=== PATIENT | female | born 1960 | race Caucasian/White ===

== ENCOUNTER 2018-01-29 07:08 | Emergency (ER) | payer BC ==
--- NOTE | 2018-01-29 07:23 | UC ---
Dental HPI - HPI Summary HPI Summary: This patient is a 57 year old F presenting to [facility] with a chief complaint of L molar pain since 01/26/18 in the afternoon. The CC is described as more in the L side and it started as tingling/numbing feeling like a nerve pain. The patient rates the pain 2/10 in severity. Symptoms aggravated by her cold. Symptoms alleviated by nothing. Patient reports sore throat (since 01/26/18 in the evening), lip swelling, L sided neck soreness, and L sided face pain with bumps. Patient denies fever, eye pain, ear pain, jaw pain, and numbness and weakness in the LE bilaterally. The patient denies hx of shingles. - History of Current Complaint Stated Complaint: DENTAL Hx Obtained From: Patient Onset/Duration: Sudden Onset, Lasting Days, Still Present Severity: Mild Pain Intensity: 2 Pain Scale Used: 0-10 Numeric Aggravating Factor(s): Other - her cold Alleviating Factor(s): Nothing - Allergies/Home Medications Allergies/Adverse Reactions: Allergies Allergy/AdvReac Type Severity Reaction Status Date / Time moxifloxacin Allergy Intermediate Hives Verified 01/29/18 07:32 Penicillins Allergy Intermediate Unknown Verified 01/29/18 07:32 Reaction Details Quinolones Allergy Rash Verified 01/29/18 07:32 Home Medications: Home Medications Atorvastatin* [Lipitor 20 MG*] 1 tab PO DAILY 01/29/18 [History Confirmed ] PMH/Surg Hx/FS Hx/Imm Hx Endocrine History: Other Other Endocrine History: denies DM Cardiovascular History: Other Other Cardiovascular History: denies HTN GI/ History: Gastroesophageal Reflux - Surgical History Surgical History: Yes Surgery Procedure, Year, and [place] [facility] [facility] breast mass,. 09/[place] [facility] lobectomy/isthmusectomy, 10/[place] [facility], CERVICAL ABLATION. T/A 1979. WISDOM TEETH 1980. 1994, [place] [facility] 11/17/15-GASTRIC SLEEVE - Family History Known Family History: Positive: Other Family History: denies FHx of breast CA - Social History Alcohol Use: None Substance Use Type: None Smoking Status (MU): Never Smoked Tobacco Have You Smoked in the Last Year: No - Immunization History Most Recent Influenza Vaccination: 2014 Most Recent Tetanus Shot: UP TO DATE Most Recent Pneumonia Vaccination: HAS NOT HAD Review of Systems Constitutional: Other - denies fever Eyes: Other - denies eye pain ENT: Dental Pain - L molar pain, Sore Throat, Other - lip swelling, L sided neck soreness, and L sided face pain with bumps; denies ear pain and jaw pain Musculoskeletal: Other: - denies numbness and weakness in the LE bilaterally All Other Systems Reviewed And Are Negative: Yes Physical Exam - Summary Physical Exam Summary: General: well-appearing, no pain distress Skin: warm, color reflects adequate perfusion, dry Head: normal Eyes: EOMI, ALEXIS ENT: Little swelling in L upper lip, small raised area on L cheek, clear rhinorrhea, No tenderness to palpation of the tragus on the L Neck: supple, nontender Respiratory: CTA, breath sounds present Cardiovascular: RRR Abdomen: soft, nontender Bowel: present Musculoskeletal: normal, strength/ROM intact Neurological: sensory/motor intact, A&O x3. No sensation deficit, no facial droop Psychological: affect/mood appropriate Triage Information Reviewed: Yes Vital Signs: Initial Vitals Temp Pulse Resp BP Pulse Ox 98.5 F 59 20 159/77 99 01/29/18 07:25 01/29/18 07:25 01/29/18 07:25 01/29/18 07:25 01/29/18 07:25 Vital Signs Reviewed: Yes Dental Complaint Course/Dx - Course Course Of Treatment: Medications reviewed. Allergies noted. PROBABLE SHINGLES ON LEFT FACE. RX VALACYCLOVIR. DISCUSSED GETTING SEEN BY OPHTHALMOLOGY IF ANY EYE PAIN. RX ABX FOR POSSIBLE SINUSITIS. F/U PMD; RECHECK SOONER IF WORSE. - Differential Dx/Diagnosis Provider Diagnoses: LEFT FACIAL PAIN Discharge - Sign-Out/Discharge Documenting (check all that apply): Patient Departure - discharge All imaging exams completed and their final reports reviewed: No Studies - Discharge Plan Condition: Stable Disposition: HOME Prescriptions: Azithromyxin EDUIN (NF) [Z-Eduin (Zithromax) 250 mg tabs #6] 2 tab PO .TODAY, THEN 1 DAILY #6 tab Valacyclovir HCl [Valacyclovir] 1,000 mg PO TID #21 tablet Patient Education Materials: Shingles (ED), Sinusitis (ED) Referrals: Ronny Figueroa MD [Primary Care Provider] - Av Jones MD [Medical Doctor] - Additional Instructions: FOLLOW UP WITH YOUR DOCTOR THIS WEEK. IF YOU HAVE ANY EYE PAIN, SEE THE APPLICATIONS SUPPORT ENGINEER. GET RECHECKED FOR ANY WORSENING OF YOUR CONDITION; WEAKNESS, NUMBNESS, EYE PAIN , YOU FEEL ILL OR QUESTIONS OR CONCERNS. - Billing Disposition and Condition Condition: STABLE Disposition: Home - Attestation Statements Document Initiated by Scribe: Yes Documenting Scribe: Owne Herbert Provider For Whom Jg is Documenting (Include Credential): Paco Kenny MD Scribe Attestation: IOwen, scribed for Paco Kenny MD on 01/29/18 at 1125. Scribe Documentation Reviewed: Yes Provider Attestation: The documentation as recorded by the Owen swanson accurately reflects the service I personally performed and the decisions made by me, Paco Kenny MD
[2018-01-29 07:31] VITALS: BP 159/77
== END 2018-01-29 07:36 | disposition home or self-care (01) ==
LOC: UCEAST 07:08
DX: G50.1 Atypical facial pain (principal); Z88.1 Allergy status to other antibiotic agents; Z88.0 Allergy status to penicillin
CPT/HCPCS: 99212; G0463

== ENCOUNTER 2018-02-19 05:27 | Emergency (ER) | payer BC ==
--- OUTSIDE RECORDS SUMMARY | 2018-02-19 05:47 | XMS REPORT | Continuity of Care Document ---
:1960 External Reference #:[id number] Author Name Luz De Los Santos O.D. Address [address] [place] [address] Care Team Providers Name Role Phone Marcos Figueroa M.D. Primary Care Physician Unavailable Payers Type Date Identification Numbers Payment Provider Subscriber Policy Number: [id number] [facility] Vinicio Mota PayID: [id number] [place] [id number] Advance Directives Description No Information Available Problems Date Description Provider Status Onset: 04/14/2015 Essential hypertension Luz De Los Santos O.D. Active Onset: 04/14/2015 Migraine Luz De Los Santos O.D. Active Onset: 04/14/2015 Hypercholesterolemia Luz De Los Santos O.D. Active Onset: 04/14/2015 Gastroesophageal reflux disease Luz De Los Santos O.D. Active Onset: 04/14/2015 Chronic sinusitis Luz De Los Santos O.D. Active Onset: 04/14/2015 Subtotal thyroidectomy Luz De Los Santos O.D. Active Onset: 04/15/2015 Vitreous degeneration Luz De Los Santos O.D. Active Onset: 04/15/2015 Refractive amblyopia Luz De Los Santos O.D. Active Onset: 01/31/2018 Herpes zoster without complication Luz De Los Santos O.D. Active Family History Date Family Member(s) Problem(s) Comments Father Macular Degeneration Mother No Current Problems Social History Type Date Description Comments Sex Unknown Marital Status Legal Status: Occupation [employer] Work Status Full-Time Employment ETOH Use Rarely consumes alcohol Tobacco Use Start: Unknown Patient has never smoked Recreational Drug Use Denies Drug Use Smoking Status Reviewed: 01/31/18 Patient has never smoked Allergies, Adverse Reactions, Alerts Date Description Reaction Status Severity Comments 04/14/2015 Penicillins Active 04/14/2015 Quinolones Active Medications Medication Date Status Form Strength Qnty SIG Indications Ordering Provider Refresh Optive 02/10 Active Solution 0.5-0.9% 1 drop Luz J. /2015 both eyes [place], four O.D. times a day Levothyroxine Sodium Active Tablets 50mcg Unknown /0000 Protonix Active Tablets 40mg Unknown /0000 Clindamycin Active Solution 1% Unknown Phosphate /0000 Biotin Active Capsules 1mg Unknown /0000 Vitamin B-12 Active Tablets 500mcg Unknown /0000 Multivitamins Active Capsules Unknown /0000 Biotrue Active Solution as needed Unknown /0000 Azithromycin 00 Active Tablets 250mg Take 2 Unknown /0000 Tablets By Mouth Together On Day 1 Then Take 1 Tablet Daily On Days 2 Through 5 Valacyclovir HCL Active Tablets 1gm Take 1 Unknown /0000 Tablet By Mouth Three Times Daily Losartan Potassium 00/ Hx Tablets 25mg Unknown /0000 - 02/10 Amlodipine Besylate Hx Tablets 2.5mg Unknown /0000 - 02/25 Atorvastatin Calcium 00 Hx Tablets 10mg Unknown /0000 - 02/10 Hydrochlorothiazide 0000 Hx Tablets 50mg Unknown /0000 - 02/25 Potassium Chloride 00/00 Hx Tablets 10Meq Unknown ER /0000 ER - 02/25 Immunizations Description No Information Available Vital Signs Description No Information Available Results Description No Information Available Procedures Date Code Description Status 02/10/2017 63921 Determination Of Refractive State Completed 02/10/2017 01649 Est Patient Comprehensive Exam Completed 02/26/2016 48218 Determination Of Refractive State Completed 02/26/2016 55783 Est Patient Comprehensive Exam Completed 04/15/2015 49406 Determination Of Refractive State Completed 04/15/2015 38140 Est Patient Comprehensive Exam Completed 06/03/2013 55573 Est Patient Comprehensive Exam Completed 06/03/2013 201 Refit - No Change In Fit Completed 03/19/2012 201 Refit - No Change In Fit Completed 10/13/2011 48100 Est Patient Intermediate Exam Completed 12/17/2010 50579 Determination Of Refractive State Completed 12/17/2010 85977 Est Patient Comprehensive Exam Completed 12/17/2010 201 Refit - No Change In Fit Completed 11/02/2009 57284 Determination Of Refractive State Completed 11/02/2009 57000 Est Patient Comprehensive Exam Completed 11/02/2009 203 Refit Soft Toric/Monovision Completed 09/03/2008 203 Refit Soft Toric/Monovision Completed 08/08/2008 78705 New Patient Comprehensive Exam Completed Encounters Type Date Location Provider Dx Diagnosis Office Visit 09/28/2011 [facility] 379.21 Vitreous 3:15p , pc MD [facility] 368.00 Amblyopia Unspec Office Visit 03/30/2011 9:[address] 379.21 Vitreous MD Robert, pc MD [facility] 368.00 Amblyopia Unspec Office Visit 03/23/2011 4:[address] 362.56 Macular MD Robert, pc Arlene De Los Santos Puckering Plan of Treatment 01/31/2018 - Luz De Los Santos O.D.B02.9 Zoster without complicationsComments: Smoking can increase the risk of developing or worsening any eye related disease , as well as affect your overall health. If you are a smoker, we strongly recommend that you quit.If you are not a smoker, we strongly recommend that you do not start. disc with pt to possibly try lysine supplementsFollow up:prn/ 2017 viviana
--- OUTSIDE RECORDS SUMMARY | 2018-02-19 05:47 | XMS REPORT ---
:1960 External Reference #:[id number] Author Organization [employer] Address [address] [facility] [place] [address] [place] [address] Phone [phone] Care Team Providers Name Role Phone Ronny Figueroa MD Primary Care Physician Unavailable Payers Type Date Identification Numbers Payment Provider Subscriber Health Maintenance Effective: Policy Number: [facility] Vinicio Mota [facility] (O) 05/08/2017 [id number] PayID: [id number] [address] [address] ALYSSA Hall [address] Medigap Part B Expires: 05/07/2017 Policy Number: BS Lisa Mota [id number] PayID: [id number] [address] [address] ALYSSA Pruitt [address] Medigap Part B Effective: 09/05/1998 Policy Number: BS Elliot MONTALVOGonzalo Mota [id number] Expires: 03/07/2012 Group Number: [id number] [id number] PayID: [id number] ALYSSA Pruitt [id number] Workers Effective: Policy Number: [place] Occupational Ariadne Peacock Compensation 03/25/2013 [id number] [facility] Nakul Onset: 03/25/2013 PayID: [id number] Beto Munson [facility] [address] [place] [address] Problems Date Description Provider Status Onset: 04/18/2012 Benign essential hypertension Kerry Rondon M.D. Onset: 10/06/2017 Localized superficial swelling of Sergio Holman MD Active skin Onset: 10/06/2017 Strain of musc/fasc/tend long hd Sergio Holman MD Active bicep, right arm, subs Onset: 10/06/2017 Hypothyroidism Ronny Figueroa, Active Kathleen,FACP Onset: 10/06/2017 Gastroesophageal reflux disease Ronny Figueroa, Active with hiatal hernia Dominick.True,FACP Onset: 10/06/2017 History of bariatric surgical Ronny Figueroa Active procedure M.True,FACP Onset: 10/06/2017 Mixed hyperlipidemia Ronny Figueroa Active Kathleen,FACP Onset: 10/06/2017 Nodular goiter Ronny Figueroa Active Kathleen,FACP Note: partial thyroidectomy Onset: 04/18/2012 Chest pain Rashid Hawley M.D. Resolved Resolved: 10/06/2017 Onset: 04/18/2012 Tachycardia Rashid Hawley M.D. Resolved Resolved: 10/06/2017 Family History Date Family Member(s) Problem(s) Comments General Heart Disease Paternal General Diabetes Paternal Father Hypertension : (age Father due to Natural 84 Years) Causes Father Coronary Artery Disease (CAD) Father Parkinson's Disease Mother Poliomyelitis Mother due to Dementia () Mother Hypertension Mother Coronary Artery Disease (CAD) Mother Migraine Mother Dementia Siblings 2 First Brother Poliomyelitis First Brother Celiac Disease Paternal Grandfather due to AK () - age 70yrs Paternal Grandfather due to Diabetes () Paternal Grandfather due to Cancer, () Colon Paternal Grandmother due to CAD () Paternal Grandmother due to CABG X4 () Maternal Grandfather due to CAD () Maternal Grandmother due to CAD () Social History Type Date Description Comments Marital Status Lives With Family Occupation Currently Working [employer] Cigarette Use Never Smoked Cigarettes ETOH Use 10/06/2017 Drinks Alcoholic Beverages Rarely Smoking Patient has never smoked Recreational Drug Use Denies Drug Use Exercise Type/Frequency Exercises regularly General Hx Text one daughter 21 Allergies, Adverse Reactions, Alerts Date Description Reaction Status Severity Comments 09/27/2007 Penicillin active 08/18/2016 Avelox active 09/27/2007 avalox inactive hives Medications Medication Date Status Form Strength Qnty SIG Indications Ordering Provider Zithromax 01/29 Hx Tablets 250mg 6tabs .Today, Then 1 - Daily 02/03 Valacyclovir HCL 01/29 Active Tablets 1gm 21tab Three Times s Daily Atorvastatin 10/06 Active Tablets 20mg 90tab one tab Ronny Calcium s daily True Figueroa M.D.,[facility] Pantoprazole 06/23 Active Tablets 40mg 30tab One tablet Rosita Keon Sodium DR s by mouth Alden, once daily MD Pickard-Madonna 11/04 Active Lotion 1% Twice Daily Micro-K 05/25 Active Capsules 10Meq Every ER Morning Biotin Active Tablets 2500mcg 2 tab daily Unknown Complete Active Chewtabs two chew Unknown Multi-Vitamin tabs daily Nasalcrom Active Aerosol 5.2mg/Act daily Hydrochlorothiazid Active Tablets 25mg 30tab Take 1 [place] e s Tablet By [place] Mouth Every , M.D. Day as Needed For Edema In Lower Extremities Levothyroxine Active Tablets 50mcg 90tab Take 1 Ronny Sodium s Tablet By True Figuerao, Mouth Every M.D.,[facility] Day Lopressor 11/12 Hx Tablets 100mg 2tabs 1 PO night Qutayb before ct S. - scan [facility] 05/20 1 po , M.D. /[address] scan Protonix 09/26 Hx Tablet 40mg 1 [facility]2017 Levothyroxine 09/26 Hx Tablets 100mcg 90tab Take 1 Qutaybeh Sodium s Tablet By S. Mouth Every [facility] , M.D. Dyazide 09/26 Hx Capsules 37.5-25 1 po qd [facility] Amlodipine Hx Tablets 2.5mg 30tab 1 po qd Unknown Besylate s Hydrochlorothiazid Hx Tablets 50mg 90tab 1 po qd Unknown e s Atorvastatin Hx 20mg daily Unknown / - 10/06 Losartan Potassium Hx Tablets 25mg 1 by mouth Unknown /0000 every day Flintstones 00 Hx Chewtabs 2 by mouth Unknown /0000 every day - 10/06 Vitamin D, Calcium Hx Capsules 1000Unit 1 by mouth Unknown & K /0000 every day - 10/06 Vital Signs Date Vital Result Comment 01/31/2018 Height 65.5 inches 5'5.50" Weight 184.00 lb Heart Rate 71 /min BP Systolic 130 mmHg BP Diastolic 68 mmHg O2 % BldC Oximetry 98 % BMI (Body Mass Index) 30.2 kg/m2 10/06/2017 Height 65.5 inches 5'5.50" Weight 182.00 lb Heart Rate 69 /min BP Systolic Sitting 126 mmHg BP Diastolic Sitting 68 mmHg Body Temperature 97.5 F O2 % BldC Oximetry 97 % BMI (Body Mass Index) 29.8 kg/m2 10/06/2017 Height 66 inches 5'6" Heart Rate 64 /min BP Systolic 120 mmHg BP Diastolic 70 mmHg Respiratory Rate 16 /min Body Temperature 97.8 F Pain Level 2 09/15/2017 Height 66 inches 5'6" Weight 182.25 lb Heart Rate 79 /min BP Systolic 118 mmHg BP Diastolic 62 mmHg Respiratory Rate 16 /min Body Temperature 98.0 F Pain Level 8 BMI (Body Mass Index) 29.4 kg/m2 11/16/2016 Height 66 inches 5'6" Weight 170.00 lb Heart Rate 78 /min BP Systolic 120 mmHg BP Diastolic 70 mmHg Respiratory Rate 18 /min Body Temperature 98.1 F BMI (Body Mass Index) 27.4 kg/m2 08/18/2016 Height 66 inches 5'6" Weight 171.00 lb Heart Rate 66 /min BP Systolic 112 mmHg BP Diastolic 64 mmHg Respiratory Rate 16 /min Body Temperature 97.7 F BMI (Body Mass Index) 27.6 kg/m2 05/20/2016 Height 66 inches 5'6" Weight 179.00 lb Heart Rate 74 /min BP Systolic Sitting 122 mmHg BP Diastolic Sitting 64 mmHg Respiratory Rate 16 /min Body Temperature 97.2 F BMI (Body Mass Index) 28.9 kg/m2 02/17/2016 Height 66 inches 5'6" Weight 209.00 lb Heart Rate 68 /min BP Systolic 132 mmHg BP Diastolic 76 mmHg Respiratory Rate 16 /min Body Temperature 97.7 F BMI (Body Mass Index) 33.7 kg/m2 07/29/2013 Height 65 inches 5'5" Weight 260.00 lb Heart Rate 74 /min BMI (Body Mass Index) 43.3 kg/m2 04/17/2013 Height 65 inches 5'5" Weight 260.00 lb Heart Rate 75 /min BP Systolic 145 mmHg BP Diastolic 81 mmHg BMI (Body Mass Index) 43.3 kg/m2 11/07/2007 Height 65 inches 5'5" Weight 273.00 lb Heart Rate 80 /min BP Systolic Sitting 130 mmHg BP Diastolic Sitting 74 mmHg Respiratory Rate 16 /min BMI (Body Mass Index) 45.4 kg/m2 09/27/2007 Height 65 inches 5'5" Weight 269.00 lb Heart Rate 88 /min BP Systolic Sitting 120 mmHg BP Diastolic Sitting 80 mmHg BP Systolic Standing 120 mmHg BP Diastolic Standing 80 mmHg BP Systolic Lying Down 130 mmHg BP Diastolic Lying Down 80 mmHg Respiratory Rate 16 /min BMI (Body Mass Index) 44.8 kg/m2 Results Test Date Test Result H/L Range Note Laboratory test finding 11/16/2017 TSH (Thyroid Stim 0.56 mcIU/mL 0.34- 5.60 1 Horm) Hepatitis C Antibody Nonreactive Nonreactive 2 CBC Auto Diff 11/16/2017 White Blood Count 6.3 10^3/uL 3.5-10.8 Red Blood Count 4.81 10^6/uL 4.00-5.40 Hemoglobin 14.8 g/dL 12.0-16.0 Hematocrit 43 % 35-47 Mean Corpuscular Volume 90 fL 80-97 Mean Corpuscular Hemoglobin 31 pg 27-31 Mean Corpuscular HGB Conc 34 g/dL 31-36 Red Cell Distribution Width 13 % 10.5-15 Platelet Count 285 10^3/uL 150-450 Mean Platelet Volume 10.2 um3 7.4-10.4 Abs Neutrophils 3.6 10^3/uL 1.5-7.7 Abs Lymphocytes 2.0 10^3/uL 1.0-4.8 Abs Monocytes 0.5 10^3/uL 0-0.8 Abs Eosinophils 0.1 10^3/uL 0-0.6 Abs Basophils 0.1 10^3/uL 0-0.2 Abs Nucleated RBC 0 10^3/uL Granulocyte % 57.7 % 38-83 Lymphocyte % 31.3 % 25-47 Monocyte % 8.4 % High 0-7 Eosinophil % 1.7 % 0-6 Basophil % 0.9 % 0-2 Nucleated Red Blood Cells % 0.1 Comp Metabolic Panel 11/16/2017 Sodium 140 mmol/L 135-145 Potassium 3.8 mmol/L 3.5-5.0 Chloride 101 mmol/L 101-111 Co2 Carbon Dioxide 31 mmol/L 22-32 Anion Gap 8 mmol/L 2-11 Glucose 88 mg/dL 70-100 Blood Urea Nitrogen 24 mg/dL 6-24 Creatinine 0.84 mg/dL 0.51-0.95 BUN/Creatinine Ratio 28.6 High 8-20 Calcium 9.6 mg/dL 8.6-10.3 Total Protein 6.7 g/dL 6.4-8.9 Albumin 4.4 g/dL 3.2-5.2 Globulin 2.3 g/dL 2-4 Albumin/Globulin Ratio 1.9 1-3 Total Bilirubin 0.80 mg/dL 0.2-1.0 Alkaline Phosphatase 80 U/L 34-104 Alt 36 U/L 7-52 Ast 27 U/L 13-39 Egfr Non- 70.4 >60 Egfr 85.2 >60 3 Iron & Iron Binding Capacity 11/16/2017 Iron 160 g/dL 50-212 Unsaturated Iron Binding 217 g/dL Total Iron Binding Capacity 377 g/dL 250-450 Transferrin 269 mg/dL 203-362 % Iron Saturation 42 % 15-55 Laboratory test finding 11/16/2017 Ferritin 151.9 ng/mL 11-307 Folic Acid (Folate) > 20.00 ng/mL >3.99 Vitamin B12 1047 pg/mL High 180-914 4 Vitamin D Total 25(Oh) 59.2 ng/mL High 20-50 Vitamin B1 (Whole Blood) 197 nmol/L 70-180 5 Vitamin E Level 14.3 mg/L 5.5 - 17.0 6 Lipid Profile (Trig/Chol/HDL) 06/24/2017 Triglycerides 64 mg/dL 7 Cholesterol 123 mg/dL 8 HDL Cholesterol 45.6 mg/dL 9 LDL Cholesterol 65 mg/dL 10 Liver Function Panel 06/24/2017 Total Protein 6.4 g/dL 6.4-8.9 Albumin 4.1 g/dL 3.2-5.2 Globulin 2.3 g/dL 2-4 Albumin/Globulin Ratio 1.8 1-3 Total Bilirubin 0.90 mg/dL 0.2-1.0 Direct Bilirubin 0.20 mg/dL High 0.03-0.18 Indirect Bilirubin 0.7 mg/dL 0.3-1.0 Alkaline Phosphatase 80 U/L 34-104 Alt 47 U/L 7-52 Ast 31 U/L 13-39 Laboratory test finding 05/18/2017 Creatine Kinase(CK) 43 U/L 10-223 Liver Function Panel 05/18/2017 Total Protein 5.9 g/dL Low 6.4-8.9 Albumin 4.0 g/dL 3.2-5.2 Globulin 1.9 g/dL Low 2-4 Albumin/Globulin Ratio 2.1 1-3 Direct Bilirubin 0.20 mg/dL High 0.03-0.18 Alkaline Phosphatase 68 U/L 34-104 Alt 33 U/L 7-52 Ast 26 U/L 13-39 Total Bilirubin 0.90 mg/dL 0.2-1.0 Indirect Bilirubin 0.7 mg/dL 0.3-1.0 Iron & Iron Binding Capacity 05/18/2017 Iron 128 g/dL 50-212 Unsaturated Iron Binding 215 g/dL Total Iron Binding Capacity 343 g/dL 250-450 % Iron Saturation 37 % 15-55 CBC Auto Diff 05/18/2017 White Blood Count 4.5 10^3/uL 3.5-10.8 Red Blood Count 4.57 10^6/uL 4.0-5.4 Hemoglobin 13.6 g/dL 12.0-16.0 Hematocrit 41 % 35-47 Mean Corpuscular Volume 90 fL 80-97 Mean Corpuscular Hemoglobin 30 pg 27-31 Mean Corpuscular HGB Conc 33 g/dL 31-36 Red Cell Distribution Width 13 % 10.5-15 Platelet Count 216 10^3/uL 150-450 Mean Platelet Volume 9 um3 7.4-10.4 Abs Neutrophils 2.7 10^3/uL 1.5-7.7 Abs Lymphocytes 1.2 10^3/uL 1.0-4.8 Abs Monocytes 0.4 10^3/uL 0-0.8 Abs Eosinophils 0.1 10^3/uL 0-0.6 Abs Basophils 0.1 10^3/uL 0-0.2 Abs Nucleated RBC 0 10^3/uL Granulocyte % 60.1 % 38-83 Lymphocyte % 27.1 % 25-47 Monocyte % 9.9 % High 1-9 Eosinophil % 1.7 % 0-6 Basophil % 1.2 % 0-2 Nucleated Red Blood Cells % 0 Comp Metabolic Panel 05/18/2017 Sodium 138 mmol/L 133-145 Potassium 3.5 mmol/L 3.5-5.0 Chloride 101 mmol/L 101-111 Co2 Carbon Dioxide 31 mmol/L 22-32 Anion Gap 6 mmol/L 2-11 Glucose 73 mg/dL 70-100 Blood Urea Nitrogen 20 mg/dL 6-24 Creatinine 0.74 mg/dL 0.51-0.95 BUN/Creatinine Ratio 27.0 High 8-20 Calcium 9.4 mg/dL 8.6-10.3 Total Protein 6.4 g/dL 6.4-8.9 Albumin 4.1 g/dL 3.2-5.2 Globulin 2.3 g/dL 2-4 Albumin/Globulin Ratio 1.8 1-3 Total Bilirubin 0.90 mg/dL 0.2-1.0 Alkaline Phosphatase 79 U/L 34-104 Alt 35 U/L 7-52 Ast 29 U/L 13-39 Egfr Non- 81.5 >60 Egfr 104.8 >60 11 Bariatric Panel Post Op 05/18/2017 Ferritin 126.6 ng/mL 307 12 Vitamin B12 949 pg/mL High 180-914 13 Folic Acid (Folate) > 20.00 ng/mL >3.99 14 Vitamin D Total 25(Oh) 56.9 ng/mL High 20-50 15 Vitamin B1 (Whole Blood) 163 nmol/L 70-180 16 Vitamin E Level 14.2 mg/L 5.5 - 17.0 17 Bariatric Panel Post Op 11/14/2016 Ferritin 147.0 ng/mL 307 18 Vitamin B12 784 pg/mL 180-914 19 Folic Acid (Folate) > 20.00 ng/mL >3.99 20 Vitamin D Total 25(Oh) 69.5 ng/mL High 30-50 21 Vitamin B1 (Whole Blood) 138 nmol/L 70-180 22 Vitamin E Level 10.5 mg/L 5.5 - 17.0 23 Comp Metabolic Panel 11/14/2016 Sodium 139 mmol/L 133-145 Potassium 3.6 mmol/L 3.5-5.0 Chloride 104 mmol/L 101-111 Co2 Carbon Dioxide 29 mmol/L 22-32 Anion Gap 6 mmol/L 2-11 Glucose 86 mg/dL 70-100 Blood Urea Nitrogen 22 mg/dL 6-24 Creatinine 0.84 mg/dL 0.51-0.95 BUN/Creatinine Ratio 26.2 High 8-20 Calcium 8.9 mg/dL 8.6-10.3 Total Protein 6.4 g/dL 6.4-8.9 Albumin 4.2 g/dL 3.2-5.2 Globulin 2.2 g/dL 2-4 Albumin/Globulin Ratio 1.9 1-3 Total Bilirubin 0.80 mg/dL 0.2-1.0 Alkaline Phosphatase 78 U/L 34-104 Alt 93 U/L High 7-52 Ast 63 U/L High 13-39 Egfr Non- 70.7 >60 Egfr 90.9 >60 24 CBC Auto Diff 11/14/2016 White Blood Count 5.1 10^3/uL 3.5-10.8 Red Blood Count 4.37 10^6/uL 4.0-5.4 Hemoglobin 13.4 g/dL 12.0-16.0 Hematocrit 41 % 35-47 Mean Corpuscular Volume 93 fL 80-97 Mean Corpuscular Hemoglobin 31 pg 27-31 Mean Corpuscular HGB Conc 33 g/dL 31-36 Red Cell Distribution Width 13 % 10.5-15 Platelet Count 222 10^3/uL 150-450 Mean Platelet Volume 10 um3 7.4-10.4 Abs Neutrophils 3.1 10^3/uL 1.5-7.7 Abs Lymphocytes 1.5 10^3/uL 1.0-4.8 Abs Monocytes 0.4 10^3/uL 0-0.8 Abs Eosinophils 0.1 10^3/uL 0-0.6 Abs Basophils 0.1 10^3/uL 0-0.2 Abs Nucleated RBC 0 10^3/uL Granulocyte % 59.8 % 38-83 Lymphocyte % 28.5 % 25-47 Monocyte % 8.5 % 1-9 Eosinophil % 1.8 % 0-6 Basophil % 1.4 % 0-2 Nucleated Red Blood Cells % 0 Iron & Iron Binding Capacity 11/14/2016 Iron 90 g/dL 50-212 Unsaturated Iron Binding 249 g/dL Total Iron Binding Capacity 339 g/dL 250-450 % Iron Saturation 27 % 15-55 Bariatric Panel Post Op 08/15/2016 Ferritin 111.4 ng/mL 11-307 Vitamin B12 732 pg/mL 180-914 25 Folic Acid (Folate) > 20.00 ng/mL >3.99 Vitamin D Total 25(Oh) 57.8 ng/mL High 30-50 Vitamin B1 Whole Blood 134 nmol/L 70-180 26 Vitamin E Level 12.1 mg/L 5.5 - 17.0 27 Comp Metabolic Panel 08/15/2016 Sodium 138 mmol/L 133-145 Potassium 4.2 mmol/L 3.5-5.0 Chloride 103 mmol/L 101-111 Co2 Carbon Dioxide 30 mmol/L 22-32 Anion Gap 5 mmol/L 2-11 Glucose 90 mg/dL 70-100 Blood Urea Nitrogen 20 mg/dL 6-24 Creatinine 0.76 mg/dL 0.51-0.95 BUN/Creatinine Ratio 26.3 High 8-20 Calcium 8.9 mg/dL 8.6-10.3 Total Protein 6.2 g/dL Low 6.4-8.9 Albumin 4.0 g/dL 3.2-5.2 Globulin 2.2 g/dL 2-4 Albumin/Globulin Ratio 1.8 1-3 Total Bilirubin 0.70 mg/dL 0.2-1.0 Alkaline Phosphatase 89 U/L 34-104 Alt 50 U/L 7-52 Ast 36 U/L 13-39 Egfr Non- 79.3 >60 Egfr 102.0 >60 28 CBC Auto Diff 08/15/2016 White Blood Count 4.6 10^3/uL 3.5-10.8 Red Blood Count 4.46 10^6/uL 4.0-5.4 Hemoglobin 13.4 g/dL 12.0-16.0 Hematocrit 40 % 35-47 Mean Corpuscular Volume 90 fL 80-97 Mean Corpuscular Hemoglobin 30 pg 27-31 Mean Corpuscular HGB Conc 34 g/dL 31-36 Red Cell Distribution Width 14 % 10.5-15 Platelet Count 230 10^3/uL 150-450 Mean Platelet Volume 10 um3 7.4-10.4 Abs Neutrophils 2.7 10^3/uL 1.5-7.7 Abs Lymphocytes 1.4 10^3/uL 1.0-4.8 Abs Monocytes 0.4 10^3/uL 0-0.8 Abs Eosinophils 0.1 10^3/uL 0-0.6 Abs Basophils 0.1 10^3/uL 0-0.2 Abs Nucleated RBC 0 10^3/uL Granulocyte % 59.0 % 38-83 Lymphocyte % 29.4 % 25-47 Monocyte % 8.3 % 1-9 Eosinophil % 2.2 % 0-6 Basophil % 1.1 % 0-2 Nucleated Red Blood Cells % 0.1 Iron & Iron Binding Capacity 08/15/2016 Iron 87 g/dL 50-212 Unsaturated Iron Binding 246 g/dL Total Iron Binding Capacity 333 g/dL 250-450 % Iron Saturation 26 % 15-55 Laboratory test finding 05/16/2016 Vitamin B1 Whole Blood 132 nmol/L 70- 180 29 Vitamin E Level 9.9 mg/L 5.5 - 17.0 30 Laboratory test finding 05/16/2016 TSH (Thyroid Stim 0.08 mcIU/mL Low 0.34 -5.60 31 Horm) T3 Free 3.50 pg/mL 2.5-3.9 32 Free T4 (Free Thyroxine) 1.83 ng/dL High 0.61-1.12 33 Laboratory test finding 05/16/2016 TSH (Thyroid Stim 0.08 mcIU/mL Low 0.34 -5.60 34 Horm) T3 Free 3.50 pg/mL 2.5-3.9 35 Free T4 (Free Thyroxine) 1.83 ng/dL High 0.61-1.12 36 Hemoglobin A1c (Glyco HGB) 5.7 % Less than 6.0 37 Insulin Level 8.5 mcIU/mL 2.6 - 24.9 38 Iron & Iron Binding Capacity 05/16/2016 Iron 94 g/dL 50-212 Unsaturated Iron Binding 242 g/dL Total Iron Binding Capacity 336 g/dL 250-450 % Iron Saturation 28 % 15-55 CBC Auto Diff 05/16/2016 White Blood Count 4.5 10^3/uL 3.5-10.8 Red Blood Count 4.97 10^6/uL 4.0-5.4 Hemoglobin 14.1 g/dL 12.0-16.0 Hematocrit 44 % 35-47 Mean Corpuscular Volume 88 fL 80-97 Mean Corpuscular Hemoglobin 28 pg 27-31 Mean Corpuscular HGB Conc 33 g/dL 31-36 Red Cell Distribution Width 14 % 10.5-15 Platelet Count 248 10^3/uL 150-450 Mean Platelet Volume 10 um3 7.4-10.4 Abs Neutrophils 2.9 10^3/uL 1.5-7.7 Abs Lymphocytes 1.2 10^3/uL 1.0-4.8 Abs Monocytes 0.3 10^3/uL 0-0.8 Abs Eosinophils 0.1 10^3/uL 0-0.6 Abs Basophils 0 10^3/uL 0-0.2 Abs Nucleated RBC 0 10^3/uL Granulocyte % 63.4 % 38-83 Lymphocyte % 27.0 % 25-47 Monocyte % 7.0 % 1-9 Eosinophil % 1.6 % 0-6 Basophil % 1.0 % 0-2 Nucleated Red Blood Cells % 0.1 Bariatric Panel Post Op 05/16/2016 Ferritin 145.4 ng/mL 11-307 39 Vitamin B12 595 pg/mL 180-914 40 Folate > 20.00 ng/mL >3.99 41 Vitamin D Total 25(Oh) 75.4 ng/mL High 30-50 42 Vitamin B1 (Whole Blood) 132 nmol/L 70-180 43 Vitamin E Level 9.9 mg/L 5.5 - 17.0 44 Comp Metabolic Panel 05/16/2016 Sodium 139 mmol/L 133-145 Potassium 4.0 mmol/L 3.5-5.0 Chloride 102 mmol/L 101-111 Co2 Carbon Dioxide 28 mmol/L 22-32 Anion Gap 9 mmol/L 2-11 Glucose 92 mg/dL 70-100 Blood Urea Nitrogen 18 mg/dL 6-24 Creatinine 0.80 mg/dL 0.51-0.95 BUN/Creatinine Ratio 22.5 High 8-20 Calcium 9.5 mg/dL 8.6-10.3 Total Protein 6.5 g/dL 6.4-8.9 Albumin 4.2 g/dL 3.2-5.2 Globulin 2.3 g/dL 2-4 Albumin/Globulin Ratio 1.8 1-3 Total Bilirubin 0.90 mg/dL 0.2-1.0 Alkaline Phosphatase 92 U/L 34-104 Alt 40 U/L 7-52 Ast 25 U/L 13-39 Egfr Non- 74.7 >60 Egfr 96.1 >60 45 CBC Auto Diff 11/05/2012 White Blood Count 7.1 10^3/uL 4.8-10.8 Red Blood Count 4.61 10^6/uL 4.0-5.4 Hemoglobin 13.0 g/dL 12.0-16.0 Hematocrit 41 % 35-47 Mean Corpuscular Volume 89 fL 80-97 Mean Corpuscular Hemoglobin 28 pg 27-31 Mean Corpuscular HGB Conc 32 g/dL 31-36 Red Cell Distribution Width 14 % 10.5-15 Platelet Count 269 10^3/uL 150-450 Mean Platelet Volume 10 um3 7.4-10.4 Abs Neutrophils 4.6 10^3/uL 1.5-7.7 Abs Lymphocytes 1.9 10^3/uL 1.0-4.8 Abs Monocytes 0.5 10^3/uL 0-0.8 Abs Eosinophils 0.1 10^3/uL 0-0.6 Abs Basophils 0.1 10^3/uL 0-0.2 Abs Nucleated RBC 0 10^3/uL Granulocyte % 64.2 % 38-83 Lymphocyte % 26.3 % 25-47 Monocyte % 6.9 % 1-9 Eosinophil % 1.6 % 0-6 Basophil % 1.0 % 0-2 Nucleated Red Blood Cells % 0 Iron & Iron Binding Capacity 11/05/2012 Iron 76 g/dL 28-170 Unsaturated Iron Binding 313 g/dL Total Iron Binding Capacity 389 g/dL 250-450 % Iron Saturation 20 % 15-55 Laboratory test finding 11/05/2012 Ferritin 50 ng/mL 11-307 Vitamin B12 324 pg/mL 180-914 Folate 17.8 ng/mL High 2-16 Lipid Profile (Trig/Chol/HDL) 01/23/2008 Triglyceride 164 mg/dL 40-200 Cholesterol 183 mg/dL Less Than 200 46 High Density Lipoprotein 33 mg/dL Low 40-60 47 Cholesterol/HDL Ratio 5.55 AVERAGE High 1-4.44 Low Density Lipoprotein 117 mg/dL High Less Than 100 48 Laboratory test finding 01/23/2008 Alt (SGPT) 22 U/L 14-54 Basic Metabolic Panel 01/23/2008 Sodium 135 mmol/L 135-145 Potassium 3.9 mmol/L 3.5-5.0 Chloride 100 mmol/L Low 101-111 Co2 (Carbon Dioxide) 30.0 mmol/L 22-32 Anion Gap 5.0 mmol/L 2-11 49 Glucose 102 mg/dL High 70-100 50 BUN 13 mg/dL 6-24 Creatinine 0.8 mg/dL 0.5-1.4 One Over Creatinine 1.25 BUN/Creatinine Ratio 16.3 8-20 Calcium 8.8 mg/dL 8.1-9.9 51 1 FASTING 10 HOUR 2 FASTING 10 HOUR 3 Because ethnic data is not always readily available, this report includes an eGFR for both -Americans and non- Americans. The National Kidney Disease Education Program (NKDEP) does not endorse the use of the MDRD equation for patients that are not between the ages of 18 and 70, are , have extremes of body size, muscle mass, or nutritional status, or are non- or non-. According to the National Kidney Foundation, irrespective of diagnosis, the stage of the disease is based on the level of kidney function: Stage Description GFR(mL/min/1.73 m(2)) 1 Kidney damage with normal or decreased GFR 90 2 Kidney damage with mild decrease in GFR 60-89 3 Moderate decrease in GFR 30-59 4 Severe decrease in GFR 15-29 5 Kidney failure <15 (or dialysis) 4 Normal Range 180 to 914 Indeterminate Range 145 to 180 Deficient Range <145 5 ADDITIONAL INFORMATION This test was developed and its performance characteristics determined by [facility] in a manner consistent with CLIA requirements. This test has not been cleared or approved by the U.S. Food and Drug Administration. Test Performed by: [facility] [employer] [address] 6 ADDITIONAL INFORMATION This test was developed and its performance characteristics determined by [facility] in a manner consistent with CLIA requirements. This test has not been cleared or approved by the U.S. Food and Drug Administration. Test Performed by: [facility] [place] [address] 7 Desirable: <150 Borderline High: 150-199 High: 200-499 Very High: >500 8 Desirable: <200 Borderline High: 200-239 High: >239 9 Low: <40 Desirable: 40-60 High: >60 10 Desirable: <100 Near Optimal: 100-129 Borderline High: 130-159 High: 160-189 Very High: >189 11 Because ethnic data is not always readily available, this report includes an eGFR for both -Americans and non- Americans. The National Kidney Disease Education Program (NKDEP) does not endorse the use of the MDRD equation for patients that are not between the ages of 18 and 70, are , have extremes of body size, muscle mass, or nutritional status, or are non- or non-. According to the National Kidney Foundation, irrespective of diagnosis, the stage of the disease is based on the level of kidney function: Stage Description GFR(mL/min/1.73 m(2)) 1 Kidney damage with normal or decreased GFR 90 2 Kidney damage with mild decrease in GFR 60-89 3 Moderate decrease in GFR 30-59 4 Severe decrease in GFR 15-29 5 Kidney failure <15 (or dialysis) 12 FASTING 13 Normal Range 180 to 914 Indeterminate Range 145 to 180 Deficient Range <145 14 FASTING 15 FASTING 16 ADDITIONAL INFORMATION This test was developed and its performance characteristics determined by [facility] in a manner consistent with CLIA requirements. This test has not been cleared or approved by the U.S. Food and Drug Administration. Test Performed by: [facility] [employer] [place] [address] 17 ADDITIONAL INFORMATION This test was developed and its performance characteristics determined by [facility] in a manner consistent with CLIA requirements. This test has not been cleared or approved by the U.S. Food and Drug Administration. Test Performed by: [facility] [place] [address] 18 PT IS FASTING 19 Normal Range 180 to 914 Indeterminate Range 145 to 180 Deficient Range <145 20 PT IS FASTING 21 PT IS FASTING 22 ADDITIONAL INFORMATION This test was developed and its performance characteristics determined by [facility] in a manner consistent with CLIA requirements. This test has not been cleared or approved by the U.S. Food and Drug Administration. Test Performed by: [facility] [employer] - [address] [address] 23 ADDITIONAL INFORMATION This test was developed and its performance characteristics determined by [facility] in a manner consistent with CLIA requirements. This test has not been cleared or approved by the U.S. Food and Drug Administration. Test Performed by: [facility] - [address] [address] 24 Because ethnic data is not always readily available, this report includes an eGFR for both -Americans and non- Americans. The National Kidney Disease Education Program (NKDEP) does not endorse the use of the MDRD equation for patients that are not between the ages of 18 and 70, are , have extremes of body size, muscle mass, or nutritional status, or are non- or non-. According to the National Kidney Foundation, irrespective of diagnosis, the stage of the disease is based on the level of kidney function: Stage Description GFR(mL/min/1.73 m(2)) 1 Kidney damage with normal or decreased GFR 90 2 Kidney damage with mild decrease in GFR 60-89 3 Moderate decrease in GFR 30-59 4 Severe decrease in GFR 15-29 5 Kidney failure <15 (or dialysis) 25 Normal Range 180 to 914 Indeterminate Range 145 to 180 Deficient Range <145 26 ADDITIONAL INFORMATION This test was developed and its performance characteristics determined by [facility] in a manner consistent with CLIA requirements. This test has not been cleared or approved by the U.S. Food and Drug Administration. Test Performed by: [facility] [employer] - [address] [id number] 27 ADDITIONAL INFORMATION This test was developed and its performance characteristics determined by [facility] in a manner consistent with CLIA requirements. This test has not been cleared or approved by the U.S. Food and Drug Administration. Test Performed by: [facility] - [address] [address] 28 Because ethnic data is not always readily available, this report includes an eGFR for both -Americans and non- Americans. The National Kidney Disease Education Program (NKDEP) does not endorse the use of the MDRD equation for patients that are not between the ages of 18 and 70, are , have extremes of body size, muscle mass, or nutritional status, or are non- or non-. According to the National Kidney Foundation, irrespective of diagnosis, the stage of the disease is based on the level of kidney function: Stage Description GFR(mL/min/1.73 m(2)) 1 Kidney damage with normal or decreased GFR 90 2 Kidney damage with mild decrease in GFR 60-89 3 Moderate decrease in GFR 30-59 4 Severe decrease in GFR 15-29 5 Kidney failure <15 (or dialysis) 29 ADDITIONAL INFORMATION This test was developed and its performance characteristics determined by [facility] in a manner consistent with CLIA requirements. This test has not been cleared or approved by the U.S. Food and Drug Administration. Test Performed by: [facility] [place] [address] Home Weatherizing Worker: Paco Roca II, M.D., Ph.D. 30 ADDITIONAL INFORMATION This test was developed and its performance characteristics determined by [facility] in a manner consistent with CLIA requirements. This test has not been cleared or approved by the U.S. Food and Drug Administration. Test Performed by: [facility] [place] [address] Home Weatherizing Worker: Paco Roca II, M.D., Ph.D. 31 FASTING 32 FASTING 33 FASTING 34 FASTING 35 FASTING 36 FASTING 37 Therapeutic target for the treatment of diabetes Mellitus patients is <7% HBA1C, and in selective patients <6.0%.Please refer to [place] [employer] Diabetic care guidelines for further information. 38 Test Performed by: [facility] [place] [address] Home Weatherizing Worker: Paco Roca II, M.D., Ph.D. 39 FASTING 40 Normal Range 180 to 914 Indeterminate Range 145 to 180 Deficient Range <145 41 FASTING 42 FASTING 43 ADDITIONAL INFORMATION This test was developed and its performance characteristics determined by [facility] in a manner consistent with CLIA requirements. This test has not been cleared or approved by the U.S. Food and Drug Administration. Test Performed by: [facility] [place] [address] Home Weatherizing Worker: Paco Roca II, M.D., Ph.D. 44 ADDITIONAL INFORMATION This test was developed and its performance characteristics determined by [facility] in a manner consistent with CLIA requirements. This test has not been cleared or approved by the U.S. Food and Drug Administration. Test Performed by: [facility] [place] [address] Home Weatherizing Worker: Paco Roca II, M.D., Ph.D. 45 Because ethnic data is not always readily available, this report includes an eGFR for both -Americans and non- Americans. The National Kidney Disease Education Program (NKDEP) does not endorse the use of the MDRD equation for patients that are not between the ages of 18 and 70, are , have extremes of body size, muscle mass, or nutritional status, or are non- or non-. According to the National Kidney Foundation, irrespective of diagnosis, the stage of the disease is based on the level of kidney function: Stage Description GFR(mL/min/1.73 m(2)) 1 Kidney damage with normal or decreased GFR 90 2 Kidney damage with mild decrease in GFR 60-89 3 Moderate decrease in GFR 30-59 4 Severe decrease in GFR 15-29 5 Kidney failure <15 (or dialysis) 46 CHOLESTEROL INTERPRETATION: Desirable: Less than 200 MG/DL Borderline-High Risk: 200-239 MG/DL High-Risk: 240 MG/DL and over 47 HDL INTERPRETATION: Undesirable: High Risk: Less than 40 MG/DL Desirable: Low Risk: Greater than 60 MG/DL 48 LDL INTERPRETATION: Low Risk Optimal Level: LDL Less than 100 MG/DL Near or Above Optimal: LDL 100-129 MG/DL Borderline High Risk: LDL 130-159 MG/DL High Risk: LDL 160-189 MG/DL Very High Risk: LDL Greater than 189 MG/DL 49 Anion gap measurement may be of limited value in the presence of any alkalosis, especially in a combined acid base disorder. . 50 Note change in reference range as of 12/27/07. The change was based on recommendations from the [place] [employer]. 51 Please note change in reference range effective 07 . Procedures Date CPT Code Description Status 06/13/2016 Mammogram Completed 12/27/2013 Colonoscopy Completed 04/17/2013 81253 Rad Exam; Knee Comp Completed 04/17/2013 50860 Rad Exam; Knee Comp Completed 10/30/2012 04095 Polysomnography Sleep Staging 4+ Parameters W/Cpap Completed 06/25/2012 21749 Polysomnography Sleep Staging 4+ Parameters Completed 04/18/2012 11968 ECHO Stress Test Incl Perf Contiuous ekg Monitoring Completed W/Phys Superv 04/18/2012 58006 ECHO Stress Test Incl Perf Contiuous ekg Monitoring Completed W/Phys Superv 10/22/2007 43337 ECHO/Stress Completed 10/22/2007 03806 ECHO/Stress Completed 10/22/2007 75716 ECHO/Stress Completed 10/22/2007 20677 Color Doppler Completed 10/22/2007 46937 Color Doppler Completed 10/22/2007 59098 Pulse Doppler & Continuous Wave Completed 10/22/2007 54042 Echocardiogram Completed 10/22/2007 15469 Echocardiogram Completed 10/22/2007 91632 Echocardiogram Completed 10/22/2007 32249 Stress Test Completed 10/22/2007 01166 Stress Test Completed 09/27/2007 54591 EKG Tracing & Interpretation Completed Encounters Type Date Location Provider CPT E/M Dx Office Visit 10/06/2017 [facility] [place] [address] R22.31 11:15a [facility] S46.111D Office Visit 10/06/2017 3:20p [facility] Internal Medicine Ronny DNegrita Silverado, [address] Kathleen,FACP Z98.84 E78.2 R22.31 Office Visit 09/15/2017 1:15p [facility] [place] [address] M79.621 [facility] R22.31 Office Visit 11/16/2016 2:15p [place], [address] Z98.84 Of [facility] FACS Office Visit 08/18/2016 1:00p [facility] Tunde Snow, 18885 Z98.84 Of [facility] [place] Office Visit 05/20/2016 9:00[place], [address] Z98.84 Of [facility] FACS Office Visit 07/29/2013 2:30p [facility] Ashlyn Lazaro M.D. 39799 715.16 Of [facility] Office Visit 05/20/2013 2:30p [facility] Ashlyn Lazaro M.D. 64111 719.06 Of [facility] 717.7 Office Visit 07/04/2012 11:49a [facility] Willis, 55316 327.23 [facility] Kathleen 327.51 Office Visit 05/25/2012 10:16a [facility] Sergio Willis, 73008 786.09 [facility] Kathleen 780.79 Office Visit 04/18/2012 8:30a [facility] Qutaybeh S. Maghaydah, 15312 786.50 M.D. 785.0 401.1 272.2 Office Visit 11/07/2007 10:20a [facility] Qutaybeh S. Maghaydah, 40011 786.05 M.D. 278.0 786.50 401.1 Office Visit 09/27/2007 1:40p [facility] Qutaybeh S. Maghaydah, 07[address] 401.0 Kathleen 786.50 786.05 278.0 Plan of Care Future Appointment(s):05/09/2018 3:00 pm - Ronny Figueroa M.D.,FACP at [facility] - [address]/31/2018 - Ronny Figueroa M.D.,FACPB02.9 Zoster without complicationsComments:Discussed your past hospitalization and symptoms.Your symptoms should improve over the next few days.Continue taking Valacyclovir as prescribed. You can take OTC pain or cold medications if needed.If you have ongoing or worsening nerve pain over the next few weeks, we will discuss prescribing nerve pain medications.
[2018-02-19] MEDS ORDERED: Ketorolac INJ* 30 MG/ML 1 ML VIAL IV PUSH ONE (05:54)
--- NOTE | 2018-02-19 05:54 | ED ---
GI/ HPI - HPI Summary HPI Summary: 58-year-old female presents with left sided pain for the past couple hours. States she's never had this before. States that it seems runaround from her flank to lower abdomen. She has a family history of kidney stones. She denies any nausea vomiting. No diarrhea no constipation. She is history of endometriosis but had an ablation. She has had a history of gastric sleeve. She admits to some urinary frequency. No fevers. - History of Current Complaint Chief Complaint: EDAbdPain Time Seen by Provider: 02/19/18 05:38 Stated Complaint: LEFT SIDED PAIN Pain Intensity: 7 - Additional Pertinent History Primary Care Physician: [id number] - Allergy/Home Medications Allergies/Adverse Reactions: Allergies Allergy/AdvReac Type Severity Reaction Status Date / Time moxifloxacin Allergy Intermediate Hives Verified 02/19/18 05:33 Penicillins Allergy Intermediate Unknown Verified 02/19/18 05:33 Reaction Details Quinolones Allergy Rash Verified 02/19/18 05:33 PMH/Surg Hx/FS Hx/Imm Hx Endocrine/Hematology History: Reports: Hx Thyroid Disease - nodules Denies: Hx Diabetes Cardiovascular History: Denies: Hx Hypertension, Hx Pacemaker/ICD, Other Cardiovascular Problems/ Disorders Respiratory History: Reports: Hx Sleep Apnea - MILD Denies: Other Respiratory Problems/Disorders GI History: Reports: Hx Gastroesophageal Reflux Disease, Hx Hiatal Hernia, Hx Irritable Bowel, Hx Ulcer - gerd History: Denies: Hx Renal Disease Musculoskeletal History: Denies: Hx Rheumatoid Arthritis, Hx Osteoporosis, Other Musculoskeletal History Sensory History: Reports: Hx Contacts or Glasses - CONTACTS-INSTRUCTS GIVEN, Hx Hearing Aid, Hx Hearing Problem - hearing loss Opthamlomology History: Reports: Hx Contacts or Glasses - CONTACTS-INSTRUCTS GIVEN Neurological History: Reports: Hx Migraine - HX OF IN THE PAST-RARELY NOW Denies: Other Neuro Impairments/Disorders Psychiatric History: Denies: Hx Panic Disorder - Cancer History Hx Chemotherapy: No Hx Radiation Therapy: No - Surgical History Surgery Procedure, Year, and [place] [facility] [place] [facility] [place],. 09/07 [facility] [place] lobectomy/isthmusectomy, 10/15 [facility] [place], CERVICAL ABLATION. T/A 1979. WISDOM TEETH 1980. 1994, LAPAROSCOPY, [facility] [place] 11/17/15-GASTRIC SLEEVE Hx Anesthesia Reactions: Yes - NAUSEA WITH THYROID SURGERY Infectious Disease History: Yes Infectious Disease History: Reports: Hx Hepatitis - 1982-[place] FROM [place] Denies: Hx Clostridium Difficile, Hx Human Immunodeficiency Virus (HIV), Hx of Known/Suspected MRSA, Hx Shingles, Hx Tuberculosis, Traveled Outside the [place] in Last 30 Days - Family History Known Family History: Positive: Other Family History: denies FHx of breast CA - Social History Alcohol Use: None Hx Substance Use: No Substance Use Type: Reports: None Hx Tobacco Use: No Smoking Status (MU): Never Smoked Tobacco Have You Smoked in the Last Year: No Review of Systems Negative: Fever Negative: Chest Pain Negative: Shortness Of Breath Positive: Abdominal Pain. Negative: Vomiting, Diarrhea, Nausea Positive: flank pain All Other Systems Reviewed And Are Negative: Yes Physical Exam Triage Information Reviewed: Yes Vital Signs On Initial Exam: Initial Vitals Temp Pulse Resp BP Pulse Ox 98.2 F 68 16 157/87 100 02/19/18 05:30 02/19/18 05:30 02/19/18 05:30 02/19/18 05:30 02/19/18 05:30 Vital Signs Reviewed: Yes Appearance: Positive: Well-Appearing Skin: Positive: Warm, Dry Head/Face: Positive: Normal Head/Face Inspection Eyes: Positive: Normal, Conjunctiva Clear ENT: Positive: Pharynx normal Respiratory/Lung Sounds: Positive: Clear to Auscultation, Breath Sounds Present Cardiovascular: Positive: Normal, RRR Abdomen Description: Positive: Soft, CVA Tenderness (L), Other: Bowel Sounds: Positive: Present Musculoskeletal: Positive: Normal Neurological: Positive: Normal Psychiatric: Positive: Normal Diagnostics - Vital Signs Vital Signs Temp Pulse Resp BP Pulse Ox 02/19/18 05:30 98.2 F 68 16 157/87 100 - Laboratory Result Diagrams: 02/19/18 05:53 02/19/18 05:53 Lab Statement: Any lab studies that have been ordered have been reviewed, and results considered in the medical decision making process. - CT abd CT Interpretation: Positive (See Comments) - 1. Mild left -sided hydronephrosis with dilatation of the left ureter. No calcified stone is seen within the collecting system the left kidney or in the left ureter. The bladder is decompressed with slight thickening of the wall. This could represent cystitis with pyelonephritis. Recommend further correlation. An alternative explanation would be the patient has passed a renal stone CT Interpretation Completed By: Radiologist Re-Evaluation - Re-Evaluation First Eval Re-Evaluation Time: 06:11 Comment: passed a stone GIGU Course/Dx - Course Course Of Treatment: 58-year-old female presents with left sided pain for the past couple hours. States she's never had this before. States that it seems runaround from her flank to lower abdomen. She has a family history of kidney stones. She denies any nausea vomiting. No diarrhea no constipation. She is history of endometriosis but had an ablation. She has had a history of gastric sleeve. She admits to some urinary frequency. No fevers. On exam tenderness left flank and left lower quadrant. No rebound. Labs were wbc normal. In the course in ED patient passed a stone. CT shows hydronephorsis left side. told to drink plenty of fluids and follow up with urology. patient no pain after passing stone. will send stone for analysis. patient understand and agrees with plan. - Diagnoses Differential Diagnoses - Female: Pyelonephritis, Urinary Tract Infection, Ureteral Calculi Provider Diagnoses: Left ureteral calculus Discharge - Sign-Out/Discharge Documenting (check all that apply): Patient Departure - Discharge Plan Condition: Good Disposition: HOME Patient Education Materials: Ureteral Stones (ED) Referrals: Ronny Figueroa MD [Primary Care Provider] - Saúl Mathews MD [Medical Doctor] - Additional Instructions: you have passed a stone Follow up with urology to get stone tested drink plenty of fluids Take Tylenol every 6 hours as needed for pain Return to ED if develop any new or worsening symptoms - Billing Disposition and Condition Condition: GOOD Disposition: Home
[2018-02-19] MEDS ORDERED: NS 0.9% 1000 ML* 1,000 ML IV ONE (06:03)
[2018-02-19 06:04] LABS: ABS Basophils 0.1 10^3/ul (0-0.2); ABS Eosinophils 0 10^3/ul (0-0.6); ABS Monocytes 0.3 10^3/ul (0-0.8); ABS Neutrophils 5.7 10^3/ul (1.5-7.7); ABS Nucleated RBC 0 10^3/ul; Eosinophil % 0.7 % (0-6); Hematocrit 40 % (35-47); Hemoglobin 13.6 g/dl (12.0-16.0); Mean Corpuscular HGB Conc 34 g/dl (31-36); Mean Corpuscular Hemoglobin 31 pg (27-31); Mean Corpuscular Volume 90 fL (80-97); Mean Platelet Volume 9.4 um3 (7.4-10.4); Nucleated Red Blood Cells % 0; Platelet Count 214 10^3/ul (150-450); Red Blood Count 4.45 10^6/ul (4.00-5.40); Red Cell Distribution Width 13 % (10.5-15); White Blood Count 7.1 10^3/ul (3.5-10.8)
[2018-02-19 06:23] LABS: EGFR Non-African American 63.1 (>60)
--- NOTE | 2018-02-19 06:29 | RAD ---
EXAM: CT Abdomen and Pelvis Without Intravenous Contrast CLINICAL HISTORY: 58 years old, female; Pain; Abdominal pain; Flank; Left; Additional info: Left side pain TECHNIQUE: Axial computed tomography images of the abdomen and pelvis without intravenous contrast. All CT scans at this facility use at least one of these dose optimization techniques: automated exposure control; mA and/or kV adjustment per patient size (includes targeted exams where dose is matched to clinical indication); or iterative reconstruction. Coronal and sagittal reformatted images were created and reviewed. COMPARISON: GB US GALL BLADDER 05/18/2015 8:33 AM FINDINGS: Lung bases: Unremarkable. No mass. No consolidation. ABDOMEN: Liver: Unremarkable. Gallbladder and bile ducts: Unremarkable. No calcified stones. No ductal dilation. Pancreas: Unremarkable. No ductal dilation. Spleen: Unremarkable. No splenomegaly. Adrenals: Unremarkable. No mass. Kidneys and ureters: Mild left-sided hydronephrosis with dilatation of the left renal pelvis. Associated perinephric stranding. Mild dilatation of the left ureter. No calcified stone within the lumen of the left ureter. The right kidney is of normal size and appearance. Stomach and bowel: The patient is status post gastroesophageal surgery. No apparent complications. No bowel obstruction. No mucosal thickening. PELVIS: Appendix: No findings to suggest acute appendicitis. Bladder: No calcified stone within the bladder. The bladder is partially filled with urine with mild thickening of the rosario. Reproductive: Unremarkable as visualized. ABDOMEN and PELVIS: Intraperitoneal space: No free fluid or air. Bones/joints: No acute fracture. No dislocation. Soft tissues: Unremarkable. Vasculature: Calcification of the abdominal aorta and iliac arteries. No aneurysmal dilatation. Lymph nodes: No pelvic adenopathy. Other findings: No mesenteric inflammation. IMPRESSION: 1. Mild left -sided hydronephrosis with dilatation of the left ureter. No calcified stone is seen within the collecting system the left kidney or in the left ureter. The bladder is decompressed with slight thickening of the wall. This could represent cystitis with pyelonephritis. Recommend further correlation. An alternative explanation would be the patient has passed a renal stone To contact [facility] with a general question: Operations Center - [phone] For direct physician to physician contact: Physician Hotline - [phone] [facility] ([facility] Facility ID #[id number])
[2018-02-19 07:02] LABS: Urine Appearance Clear; Urine Blood 3+ (Negative); Urine Color Yellow; Urine Ketones Negative (Negative); Urine Protein Negative (Negative); Urine Red Blood Cell 3+(>10/hpf) (Absent); Urine Specific Gravity 1.009 (1.010-1.030); Urine Urobilinogen Negative (Negative); Urine White Blood Cell Absent (Absent)
[2018-02-19 07:23] VITALS: BP 142/72
== END 2018-02-19 07:23 | disposition home or self-care (01) ==
LOC: ED 05:27
DX: N20.1 Calculus of ureter (principal); R10.9 Unspecified abdominal pain; Z88.0 Allergy status to penicillin
CPT/HCPCS: 36415; 74176; 80053; 81003; 81015; 82365; 83605; 83690; 85025; 86140; 88300; 96361; 96374; 99282; J1885

== ENCOUNTER 2018-05-07 12:36 | Emergency (ER) | payer BC ==
[2018-05-07 13:24] VITALS: BP 137/77
--- NOTE | 2018-05-07 13:29 | UC ---
Respiratory Complaint HPI - HPI Summary HPI Summary: 58 yo female presents with sinus pain/pressure/congestion, fever of 101F, sore throat, and dry cough for the last 5 days. Has been taking OTC cold medicine with no relief. Denies SOB, chest pain, n/v. - History of Current Complaint Chief Complaint: UCRespiratory Stated Complaint: COUGH, CONGESTION Time Seen by Provider: 05/07/18 13:27 Hx Obtained From: Patient Onset/Duration: Gradual Onset Severity Initially: Mild Severity Currently: Moderate Pain Intensity: 5 Pain Scale Used: 0-10 Numeric Character: Cough: Nonproductive - Allergies/Home Medications Allergies/Adverse Reactions: Allergies Allergy/AdvReac Type Severity Reaction Status Date / Time moxifloxacin Allergy Intermediate Hives Verified 05/07/18 13:24 Penicillins Allergy Intermediate Unknown Verified 05/07/18 13:24 Reaction Details Quinolones Allergy Rash Verified 05/07/18 13:24 Home Medications: Home Medications Aspirin/Sod Bicarb/Citric Acid [Ane-[place] Es Tab Eff] 1 tab PO Q4HR PRN 05/07 [History Confirmed 05/07/18] PMH/Surg Hx/FS Hx/Imm Hx Endocrine History: Hypothyroidism, Dyslipidemia Cardiovascular History: Hypertension GI/ History: Gastroesophageal Reflux - Surgical History Surgical History: Yes Surgery [place], Year, and [place] [facility] [place] [facility] [place],. 09[place]07 [facility] [place]/isthmusectomy, 10[place]15 [facility] [place] CERVICAL ABLATION. T/A 1979. WISDOM TEETH 1980. 1994, [place] [facility] [place]-GASTRIC SLEEVE - Family History Known Family History: Positive: Other Family History: denies FHx of breast [place] - Social History Occupation: Employed Full-time Lives: With Family Alcohol Use: Rare Substance Use Type: None Smoking Status (MU): Never Smoked Tobacco Have You Smoked in the Last Year: No - Immunization History Most Recent Influenza Vaccination: 2014 Most Recent Tetanus Shot: UP TO DATE Most Recent Pneumonia Vaccination: HAS NOT HAD Review of Systems All Other Systems Reviewed And Are Negative: Yes Constitutional: Positive: Fever Skin: Positive: Negative Eyes: Positive: Negative ENT: Positive: Nasal Discharge, Sinus Congestion, Sinus Pain/Tenderness Respiratory: Positive: Cough Cardiovascular: Positive: Negative Gastrointestinal: Positive: Negative Neurovascular: Positive: Negative Neurological: Positive: Negative Psychological: Positive: Negative Physical Exam - Summary Physical Exam Summary: GENERAL: NAD. WDWN. No pain distress. SKIN: No rashes, sores, lesions, or open wounds. HEENT: Head: AT/NC Eyes: EOM intact. Conjunctiva clear without inflammation or discharge. Ears: Hearing grossly normal. TMs intact, no bulging, erythema, or edema. Nose: Nasal mucosa mildly swollen and erythematous with yellow/ clear discharge. TTP maxillary and frontal sinus. Positive post nasal drip Throat: Posterior oropharynx without exudates, erythema, or tonsillar enlargement. Uvula midline. NECK: Supple. Nontender. No lymphadenopathy. CHEST: CTAB. No r/r/w. No accessory muscle use. Breathing comfortably and in no distress. CV: RRR. Without m/r/g. Pulses intact. NEURO: Alert. PSYCH: Age appropriate behavior. Triage Information Reviewed: Yes Vital Signs: Initial Vital Signs Temp 98.4 F 05/07/18 13:20 Pulse 61 05/07/18 13:20 Resp 18 05/07/18 13:20 BP 137/77 05/07/18 13:20 Pulse Ox 100 05/07/18 13:20 Vital Signs Reviewed: Yes Diagnostic Evaluation - Laboratory O2 Sat by Pulse Oximetry: 100 Respiratory Course/Dx - Course Course Of Treatment: Sinusitis - Differential Dx/Diagnosis Provider Diagnosis: Sinusitis Discharge - Sign-Out/Discharge Documenting (check all that apply): Patient Departure All imaging exams completed and their final reports reviewed: No Studies - Discharge Plan Condition: Stable Disposition: HOME Prescriptions: Azithromycin TAB* [Zithromax TAB (Z-YUAN) 250 mg #6 tabs] 2 tab PO .TODAY, THEN 1 DAILY #1 yuan Codeine Phosphate/Guaifenesin [Guaifen-Codeine 100-10 mg/5 ml] 5 ml PO BEDTIME PRN #35 ml MDD 5mL PRN Reason: Cough Patient Education Materials: Sinusitis (ED) Referrals: Moira Prado MD [Primary Care Provider] - Additional Instructions: If you develop a fever, shortness of breath, chest pain, new or worsening symptoms - please call your PCP or go to the ED. - Billing Disposition and Condition Condition: STABLE Disposition: Home
== END 2018-05-07 13:47 | disposition home or self-care (01) ==
LOC: UCEAST 12:36
DX: J32.9 Chronic sinusitis, unspecified (principal); I10 Essential (primary) hypertension; Z88.1 Allergy status to other antibiotic agents; Z88.0 Allergy status to penicillin; Z79.82 Long term (current) use of aspirin
CPT/HCPCS: 99212; G0463

== ENCOUNTER 2019-04-05 12:29 | Emergency (ER) | payer BC ==
[2019-04-05 14:17] VITALS: BP 00/00
--- NOTE | 2019-04-05 14:34 | UC ---
Laceration HPI - HPI Summary HPI Summary: 59-year-old female presents with complaints of a cut to her left hand that she sustained yesterday while peeling potatoes. States she slipped while using a soot blower slicing a piece of skin off of her left hand at the base of the left thumb. States she thoroughly cleaned the wound however has been unable to get the bleeding to stop despite keeping the wound dressed. States tetanus is up-to-date. Denies fever, chills, redness, swelling, or purulent drainage. - History Of Current Complaint Chief Complaint: UCLaceration Stated Complaint: HAND LACERATION Time Seen by Provider: 04/05/19 14:18 Hx Obtained From: Patient Pain Intensity: 3 - Allergies/Home Medications Allergies/Adverse Reactions: Allergies Allergy/AdvReac Type Severity Reaction Status Date / Time moxifloxacin Allergy Intermediate Hives Verified 04/05/19 14:17 Penicillins Allergy Intermediate Unknown Verified 04/05/19 14:17 Reaction Details Quinolones Allergy Rash Verified 04/05/19 14:17 PMH/Surg Hx/FS Hx/Imm Hx Endocrine History: Thyroid Disease, Dyslipidemia Cardiovascular History: Hypertension GI/ History: Gastroesophageal Reflux - Surgical History Surgical History: Yes Surgery [place], Year, and [place] [facility] [place] [facility] [place],. [place] [facility] [place] lobectomy/isthmusectomy, 10[place] [facility] [place], CERVICAL ABLATION. T/A 1979. WISDOM TEETH 1980. [place], [place] [facility] [place]-GASTRIC SLEEVE - Family History Known Family History: Positive: Non-Contributory Family History: denies FHx of breast CA - Social History Occupation: Employed Full-time Lives: With Family Alcohol Use: Rare Substance Use Type: None Smoking Status (MU): Never Smoked Tobacco Have You Smoked in the Last Year: No - Immunization History Most Recent Influenza Vaccination: 2014 Most Recent Tetanus Shot: UP TO DATE Most Recent Pneumonia Vaccination: HAS NOT HAD Review of Systems All Other Systems Reviewed And Are Negative: Yes Constitutional: Positive: Negative Skin: Positive: Other - See HPI Respiratory: Positive: Negative Cardiovascular: Positive: Negative Gastrointestinal: Positive: Negative Genitourinary: Positive: Negative Musculoskeletal: Positive: Negative Neurological: Positive: Negative Is Patient Immunocompromised?: No Physical Exam - Summary Physical Exam Summary: GENERAL APPEARANCE: Well developed, well nourished, alert and cooperative, and appears to be in no acute distress. CARDIAC: Normal S1 and S2. No S3, S4 or murmurs. Rhythm is regular. There is no peripheral edema, cyanosis or pallor. Extremities are warm and well perfused. Capillary refill is less than 2 seconds. Peripheral pulses intact. LUNGS: Clear to auscultation without rales, rhonchi, wheezing or diminished breath sounds. ABDOMEN: Positive bowel sounds. Soft, nondistended, nontender. No guarding or rebound. No masses or hepatosplenomegally. MUSKULOSKELETAL: ROM intact to all extremities. No joint erythema or tenderness. Normal muscular development. Normal gait. EXTREMITIES: 1 cm superficial circular skin avulsion to the palmar aspect of the left hand at the base of the left thumb. Capillary bleeding noted. No erythema, edema, or purulent drainage. SKIN: Skin normal color, texture and turgor. Triage Information Reviewed: Yes Vital Signs: Initial Vital Signs Temp 98.3 F 04/05/19 14:12 Pulse 72 04/05/19 14:12 Resp 18 04/05/19 14:12 BP 00/00 04/05/19 14:12 Pulse Ox 100 04/05/19 14:12 Vital Signs Reviewed: Yes Images Hands: 1 - 1 cm superficial circular skin avulsion. Capillary bleeding noted. No erythema, edema, or purulent drainage. Laceration Course/Dx - Course/Dx Course Of Treatment: 59-year-old female presents with complaints of a cut to her left hand that she sustained yesterday while peeling potatoes. States she slipped while using a soot blower slicing a piece of skin off of her left hand at the base of the left thumb. States she thoroughly cleaned the wound however has been unable to get the bleeding to stop despite keeping the wound dressed. States tetanus is up-to-date. Denies fever, chills, redness, swelling, or purulent drainage. Afebrile. Vital signs stable. Patient had a 1 cm superficial circular skin avulsion to the palmar aspect of the left hand at the base of the left thumb. Capillary bleeding noted. No erythema, edema, or purulent drainage. I applied Gelfoam to the wound, covered with a nonstick dressing, and applied a pressure bandage using an Varun wrap. Patient was instructed to leave this in place for the next 24 hours to allow for hemostasis. She is to follow-up with her primary care provider as needed. Wound care, anticipatory guidance, and warning symptoms reviewed with the patient. Verbalizes understanding and agrees with plan of care. - Differential Dx - Laceration/Wound Differental Diagnoses: Avulsion, Laceration - Diagnosis Provider Diagnosis: Avulsion of skin of left hand Discharge ED - Sign-Out/Discharge Documenting (check all that apply): Patient Departure All imaging exams completed and their final reports reviewed: No Studies - Discharge Plan Condition: Stable Disposition: HOME Patient Education Materials: Skin Avulsion (ED) Referrals: Moira Prado MD [Primary Care Provider] - If Needed Additional Instructions: We used a product called GelFoam in the clinic today to help stop the bleeding. Leave the dressing that was applied in the clinic in place for the next 24 hours. Be sure to keep it clean and dry. After 24 hours, you may remove the dressing and shower and wash hands as normal. Do not submerge the hand under water to prevent infection. Clean the wound with a mild soap and water at least once a day. Apply some antibiotic ointment and cover with a bandage. This should be changed at least once a day or any time the dressing becomes wet or soiled. Use acetaminophen (Tylenol) or ibuprofen (Advil, Motrin) according to directions as needed for pain. Watch for signs of infection including fever greater than 100.5 F, severe pain not managed with pain medication, redness that spreads, swelling of the hand/ fingers, or pus draining from the wound. Seek immediate medical attention should any of these occur. - Billing Disposition and Condition Condition: STABLE Disposition: Home
[2019-04-05] MEDS ORDERED: Gelfoam 12-7 ADSORBABL SPONGE* 1 EA SPONGE TOPICAL ONE (14:42)
== END 2019-04-05 15:39 | disposition home or self-care (01) ==
LOC: UCEAST 12:29
DX: S63.005A Unspecified dislocation of left wrist and hand, initial encounter (principal); I10 Essential (primary) hypertension; Z88.0 Allergy status to penicillin; Z88.1 Allergy status to other antibiotic agents; Z88.8 Allergy status to other drugs, medicaments and biological substances; W26.8XXA Contact with other sharp object(s), not elsewhere classified, initial encounter; Y92.9 Unspecified place or not applicable
CPT/HCPCS: 99211; A9270-GY; G0463

== ENCOUNTER 2023-04-09 18:10 | Observation (INO) ==
[2023-04-09 18:41] LABS: ABS Basophils 0.1 10^3/uL (0.0-0.1); ABS Eosinophils 0.1 10^3/uL (0.0-0.5); ABS Lymphocytes 1.6 10^3/uL (1.0-4.8); ABS Monocytes 0.5 10^3/uL (0.0-0.9); ABS Neutrophils 4.3 10^3/uL (1.5-7.6); ABS Nucleated RBC 0.01 10^3/ul; Eosinophil % 1.9 %; Hematocrit 40.8 % (35-45); Lymphocyte % 24.5 %; Mean Corpuscular Hgb Conc 34.4 g/dL (31-36); Mean Corpuscular Volume 87.2 fL (80-97); Mean Platelet Volume 9.3 fL (7.5-11.2); Nucleated Red Blood Cells % 0.1 %/100WBC (0.0-0.8); Platelet Count 292 10^3/uL (150-450); Red Blood Count 4.67 10^6/uL (3.63-4.92); Red Cell Distribution Width 13.1 % (12-17); White Blood Count 6.6 10^3/uL (3.8-11.8)
[2023-04-09 18:58] LABS: INR 1.16 (0.83-1.13)
[2023-04-09 18:59] LABS: Albumin 4.5 g/dL (3.2-5.2); Albumin/Globulin Ratio 1.6 (1-3); Calcium 9.4 mg/dL (8.6-10.3); Creatinine, Serum 0.9 mg/dL (0.51-0.95); Globulin 2.8 g/dL (2-4); Potassium 3.1 mmol/L (3.5-5.0); Total Bilirubin 0.4 mg/dL (0.2-1.0); Total Protein 7.3 g/dL (6.4-8.9); eGFR CKD-EPI 72.7 (>60)
[2023-04-09 20:58] LABS: High Sensitivity Troponin 1 Hr 4 pg/mL (<15)
[2023-04-09] MEDS ORDERED: Potassium Chlor 20 meq TAB.ER PO ONE ×2 (21:42→23:54)
[2023-04-09] MEDS ORDERED: Ondansetron 4 mg VIAL 2 MG/ML 2 ml VIAL IV PRN (22:30)
[2023-04-09] MEDS ORDERED: Enoxaparin 40 MG/0.4 ML SYR SUBCUT SCH (23:00)
[2023-04-09 23:20] LABS: High Sensitivity Troponin 3 Hr 3 pg/mL (<15)
[2023-04-10] MEDS ORDERED: Al Hydrox/Mg Hydrox/Simet LIQ 30 ML UDC PO ONE (00:26)
[2023-04-10] MEDS ORDERED: Pantoprazole VIAL 40 MG VIAL IV ONE (00:27)
[2023-04-10] MEDS ORDERED: DULoxetine DR 30 mg CAP PO SCH (01:00)
[2023-04-10 04:03] LABS: TSH Ultra Thyroid Stim Horm 0.61 mcIU/mL (0.34-5.60)
[2023-04-10 04:07] LABS: Free T4 1.18 ng/dL (0.61-1.12)
[2023-04-10 06:17] LABS: ABS Lymphocytes 0.9 10^3/uL (1.0-4.8); ABS Monocytes 0.8 10^3/uL (0.0-0.9); ABS Neutrophils 7.6 10^3/uL (1.5-7.6); Eosinophil % 0.2 %; Hematocrit 38.1 % (35-45); Hemoglobin 12.9 g/dL (11.5-14.3); Lymphocyte % 9.3 %; Mean Corpuscular Hemoglobin 29.7 pg (27-33); Mean Corpuscular Volume 87.3 fL (80-97); Mean Platelet Volume 9.1 fL (7.5-11.2); Platelet Count 266 10^3/uL (150-450); Red Blood Count 4.36 10^6/uL (3.63-4.92); Red Cell Distribution Width 13.3 % (12-17); White Blood Count 9.3 10^3/uL (3.8-11.8)
[2023-04-10 06:35] LABS: Calcium 9.1 mg/dL (8.6-10.3); Creatinine, Serum 0.82 mg/dL (0.51-0.95); HDL Cholesterol 53.5 mg/dL; Magnesium 1.9 mg/dL (1.9-2.7); Potassium 4.1 mmol/L (3.5-5.0); eGFR CKD-EPI 81.3 (>60)
[2023-04-10] MEDS ORDERED: Calcium/Vitamin D TAB 250/125 TAB PO SCH (09:00)
[2023-04-10] MEDS ORDERED: Multivitamins/Minerals TAB PO SCH (09:00)
[2023-04-10] MEDS ORDERED: Regadenoson 0.4 MG/5 ML SYRINGE ONE (09:13)
[2023-04-10] MEDS ORDERED: Aminophylline 25 MG/ML VIAL ONE (09:13)
[2023-04-10 15:26] VITALS: BP 132/64
== END 2023-04-10 15:27 | disposition home or self-care (01) ==
LOC: ED 18:10 → EDHOLD 18:10 → SUATTDRO 22:04 → EDHOLD 04-10 08:28
PROVIDERS: ADMIT Internal Medicine; ATTEND Internal Medicine